=== PATIENT | female | born 1985 | race Caucasian/White ===

== ENCOUNTER 2022-11-04 05:07 | Inpatient (IN) | payer OTHER ==
[2022-11-04] VITALS (16 sets, daily range): BP systolic 76–145; BP diastolic 47–89
[~2022-11-04] VITALS: Ht 167.6 cm; Wt 129.6 kg
[~2022-11-04 05:07] MED LIST: ABAC300; ACYC400; CEPH500 PO; CLIN150 PO; EXPECTA PRENAT1 EACH; HYDACE5 PO; IBUP600 PO; IBUP800 PO; NITR100CA PO; OXYACE5T PO; PRENATAL TABLE1 EAC2 PO; TRAM50 PO; TYLENOL/ADVIL PRN
[2022-11-04 06:25] LABS: BASOPHILS ABSOLUTE AUTO 0.03 K/mm3 (0.00-0.23); BASOPHILS PERCENT AUTO 0 % (0-2); EOSINOPHILS ABSOLUTE AUTO 0.11 K/mm3 (0.00-0.68); EOSINOPHILS PERCENT AUTO 1 % (0-6); Hematocrit 37.1 % (33.0-51.0); Hemoglobin 12.4 g/dL (11.5-16.0); IMMATURE GRAN ABSOLUTE AUTO 0.04 K/mm3 (0.00-0.10); IMMATURE GRAN PERCENT AUTO 0 % (0-1); LYMPHOCYTES PERCENT AUTO 20 % (21-46); MONOCYTES ABSOLUTE AUTO 0.61 K/mm3 (0.16-1.47); MONOCYTES PERCENT AUTO 6 % (4-13); Mean Corpuscular HGB 27.5 pg (26.0-34.0); Mean Corpuscular HGB Conc 33.4 g/dL (31.5-36.5); Mean Corpuscular Volume 82 fL (80-100); Mean Platelet Volume 11.1 fL (9.1-12.4); NEUTROPHILS ABSOLUTE AUTO 6.81 K/mm3 (1.96-9.15); NEUTROPHILS PERCENT AUTO 72 % (41-73); Platelet Count 219 K/mm3 (150-400); RDW Coefficient Variation 12.5 % (11.7-14.2); Red Blood Cell Count 4.51 M/mm3 (3.80-5.20)
[2022-11-04 08:17] LABS: PCO2 Cord - Arterial 65.1 mmHg (40-50); PO2 Cord - Arterial 18.4 mmHg (16-20); pH Cord - Arterial 7.24 (7.28-7.35)
[2022-11-04 08:19] LABS: PCO2 Cord - Venous 51.7 mmHg (40-50); PO2 Cord - Venous 24.7 mmHg (28-32); pH Umbilical Cord - Venous 7.32 (7.26-7.35)
--- NOTE | 2022-11-04 09:02 | NUR ---
PT STATES SHE CANNOT FEEL LEGS OR FEET, ATTEMPT TO WIGGLES TOES, NOT ABLE TO. PT DENIES PAIN. HOLDING BABY. SECOND FUNDAL CHECK SHOWS SMALL AMOUNT LOCIA AND FUNDUS AT UMBILICUS LEVEL. PRESSURE DRESSING APPLIED CURRENT DRESSING PEALING BACK. VSS. PT REPORTS WARM, TEMP 97.0.
--- NOTE | 2022-11-04 15:09 | NUR ---
BONY CARE DONE, REPT TO Kimmie YO RN
--- NOTE | 2022-11-04 15:10 | NUR ---
MONIQUE DONE, REPT TO Kimmie VALDOVINOS RN
--- NOTE | 2022-11-04 15:58 | NUR ---
REPORTS PAIN 5/10. PT OFFERED ADDITIONAL PAIN RX BUT PT DECLINES AT THIS TIME. REPORTS SHE WOULD LIKE TO WAIT UNTIL DINNER TIME TO TAKE THAT. PT ENCOURAGED TO CALL IF SHE CHANGES HER MIND
[2022-11-05 05:26] VITALS: BP 113/56
--- NOTE | 2022-11-05 05:35 | NUR ---
LATE ENTRY- DR. DING WAS CALLED BY [facility]U, REGARDING PT'S IRREGULAR HR AND RHYTHM. SHE ORDERS A IV FLUID BOLUS AND BLOOD WORK, BUT DECLINES REQUEST FOR A 12-LEAD.
--- NOTE | 2022-11-05 05:58 | NUR ---
At 0526 vital signs were done. Patient's pulse rate was 38 BPM. Pulse oximeter was placed which showed irregular pulse rate ranging from high 30s to low 100s. Irregular heart rate heard through auscultation. Call tp Dr. Ibarra at 0540. Orders for labs and IV fluid bolus received. Patient denies any symptoms.
[2022-11-05 06:02] LABS: BASOPHILS ABSOLUTE AUTO 0.02 K/mm3 (0.00-0.23); BASOPHILS PERCENT AUTO 0 % (0-2); EOSINOPHILS ABSOLUTE AUTO 0.02 K/mm3 (0.00-0.68); EOSINOPHILS PERCENT AUTO 0 % (0-6); Hematocrit 29.8 % (33.0-51.0); Hemoglobin 9.9 g/dL (11.5-16.0); IMMATURE GRAN ABSOLUTE AUTO 0.06 K/mm3 (0.00-0.10); IMMATURE GRAN PERCENT AUTO 1 % (0-1); LYMPHOCYTES ABSOLUTE AUTO 1.96 K/mm3 (0.84-5.20); LYMPHOCYTES PERCENT AUTO 16 % (21-46); MONOCYTES ABSOLUTE AUTO 0.89 K/mm3 (0.16-1.47); MONOCYTES PERCENT AUTO 7 % (4-13); Mean Corpuscular HGB 27.3 pg (26.0-34.0); Mean Corpuscular HGB Conc 33.2 g/dL (31.5-36.5); Mean Corpuscular Volume 82 fL (80-100); Mean Platelet Volume 11.6 fL (9.1-12.4); NEUTROPHILS ABSOLUTE AUTO 9.18 K/mm3 (1.96-9.15); NEUTROPHILS PERCENT AUTO 76 % (41-73); Platelet Count 190 K/mm3 (150-400); RDW Coefficient Variation 12.4 % (11.7-14.2); RDW Standard Deviation 36.9 fL (35.1-46.3); Red Blood Cell Count 3.63 M/mm3 (3.80-5.20); White Blood Cell Count 12.13 K/mm3 (4.00-11.30)
[2022-11-05 06:37] LABS: Albumin, Blood 2.1 g/dL (3.4-5.0); Albumin/Globulin Ratio 0.6 (0.8-1.8); Bilirubin, Total 0.2 mg/dL (0.1-1.0); Bun/Creatinine Ratio 17.5 (12.0-20.0); Calcium, Blood 8.5 mg/dL (8.5-10.1); Creatinine, Blood 0.69 mg/dL (0.40-1.00); Globulin, Blood 3.3 g/dL (2.2-4.0); Potassium, Blood 4.1 mmol/L (3.5-5.5); Total Protein, Blood 5.4 g/dL (6.4-8.2)
--- NOTE | 2022-11-05 07:40 | NUR ---
asked to make a consult to dr enriquez by pt rn, explained pt cardiac rhythm, new orders for tele, stat ekg, echo, and labs, to leave pt on bedrest until doctor comes to assess. dr enriquez requested OB doctor phone number, number given.
[2022-11-05 07:45] VITALS: BP 118/74
--- NOTE | 2022-11-05 07:48 | NUR ---
REPORT TAKEN FROM ANH CHE, ANH STATED IN REPORT THAT PT WAS EXPERIENCING BRADYCARDIA/TACHYCARDIA THIS AM PROVIDER UPDATED AND ORDER PLACED FOR LABS AND FLUID BOLUS. BOLUS COMPLETE PROVIDER UPDATED OF BRADYCARDIA/TACHYARDIA UNRESOLVED ORDERS PLACE FOR EKJG AND PROVIDER CONSULT. PT IS A&O X4 AND PT STATES UNAWARE OF RYTHM CHANGE AT THIS TIME.
--- NOTE | 2022-11-05 08:00 | NUR ---
DR. DING CALLED WRONG ORDER PLACED FOR CARDIAC CONSULT PROVIDER, PROVIDER ONLY WANTED ORDER FOR HOSPITALIST CONSULT AND EKG. WILL REFER PT FOR OP CARDIAC CONSULT ONCE D/C
[2022-11-05 08:19] LABS: Magnesium, Blood 1.7 mg/dL (1.6-2.4)
[2022-11-05 08:21] LABS: Thyroid Stimulating Hormone 2.83 uIU/mL (0.360-4.800)
[2022-11-05 12:07] VITALS: BP 113/59
[2022-11-05 12:40] VITALS: BP 140/81
--- NOTE | 2022-11-05 12:44 | NUR ---
pt non symptomatic, up to bathroom pcu called pt is between afib-aflutter, back to bed after bathroon, VS taken
[2022-11-05 15:36] VITALS: BP 144/89
[2022-11-05 19:33] VITALS: BP 135/75
[2022-11-06] VITALS (8 sets, daily range): BP systolic 120–144; BP diastolic 64–103
[2022-11-06 05:48] LABS: BASOPHILS ABSOLUTE AUTO 0.04 K/mm3 (0.00-0.23); BASOPHILS PERCENT AUTO 0 % (0-2); EOSINOPHILS ABSOLUTE AUTO 0.12 K/mm3 (0.00-0.68); EOSINOPHILS PERCENT AUTO 1 % (0-6); Hematocrit 30.3 % (33.0-51.0); IMMATURE GRAN ABSOLUTE AUTO 0.06 K/mm3 (0.00-0.10); IMMATURE GRAN PERCENT AUTO 1 % (0-1); LYMPHOCYTES ABSOLUTE AUTO 2.05 K/mm3 (0.84-5.20); LYMPHOCYTES PERCENT AUTO 19 % (21-46); MONOCYTES ABSOLUTE AUTO 0.66 K/mm3 (0.16-1.47); MONOCYTES PERCENT AUTO 6 % (4-13); Mean Corpuscular HGB 27.5 pg (26.0-34.0); Mean Corpuscular Volume 83 fL (80-100); NEUTROPHILS ABSOLUTE AUTO 7.83 K/mm3 (1.96-9.15); NEUTROPHILS PERCENT AUTO 73 % (41-73); Platelet Count 197 K/mm3 (150-400); RDW Coefficient Variation 12.7 % (11.7-14.2); RDW Standard Deviation 38.5 fL (35.1-46.3); Red Blood Cell Count 3.64 M/mm3 (3.80-5.20); White Blood Cell Count 10.76 K/mm3 (4.00-11.30)
[2022-11-06 06:14] LABS: Bun/Creatinine Ratio 16.1 (12.0-20.0); Calcium, Blood 8.1 mg/dL (8.5-10.1); Creatinine, Blood 0.69 mg/dL (0.40-1.00); Magnesium, Blood 1.8 mg/dL (1.6-2.4); Potassium, Blood 3.8 mmol/L (3.5-5.5)
--- NOTE | 2022-11-06 10:05 | NUR ---
PATIENT UP TO THE BATHROOM. MANAGER ASSEMBLY CALLED RN STATES PATIENT RATE WENT UP TO 150 FOR ONE MINUTE. PATIETN SITTING UP IN CHAIR. ASYMPTOMATIC.
--- NOTE | 2022-11-06 11:46 | NUR ---
RN PLACED CALL TO DR. CHILD (OPTICAL LENS MANUFACTURING TECH) TO GIVE HER AN UPDATE REGARDING PATIENT STATUS. RN UPDATED PROVIDER THAT PER TELE MONITOR PATIENT HAS BEEN RUNNING 120'S WHILE SITTING IN BED, UP TO 160'S WHILE UP TO THE BATHROOM. BLOOD PRESSURE 141/103. PATIENT ASYMPTOMATIC. NEW ORDERS FOR ADDITIONAL METOPROLOL RECIEVED. ORDER TO GIVE 12.5 MG NOW TO MAKE A TOTAL OF 50 MG DAILY.
--- NOTE | 2022-11-06 12:19 | NUR ---
RN PLACED CALL TO DR. DING AT 1215. VOICEBOX FULL. TEXT SENT TO CALL [facility].
--- NOTE | 2022-11-06 12:21 | NUR ---
RECIEVED TEXT FROM DR. DING STATING SHE IS IN A METTING UNTIL 1300 AND THEN WILL BE OVER TO SEE THE PATIENT.
--- NOTE | 2022-11-06 12:59 | NUR ---
reviewed charting and care with alberto lassiter.
--- NOTE | 2022-11-06 12:59 | NUR ---
per telecom assistant patient has converted to sinus rhythm with a rate of 78. was previously 160 hr with patient getting up to bathroom. pt remains asymptomatic and is sitting up feeding her baby now. awaiting dr holder to see patient this afternoon to review care as project management professor states she is cleared from a cardiology perspective.
--- NOTE | 2022-11-06 13:27 | NUR ---
dr holder in to see pt, ok to dc home with cardiology referal within 1 month as reccomended by dr bonner buggy loader. dr holder writing for scripts for 50 mg metoprolol daily as well as 20 mg xarelto daily. [facility] wants to follow up with patient within 2 weeks or sooner if patient feels syptomatic or having any issues.
[2022-11-06] MEDS ORDERED: XARELTO20 MG PO (13:30)
[2022-11-06] MEDS ORDERED: Toprol Xl50 MG PO (13:30)
[2022-11-06] MEDS ORDERED: Percocet 5-3251 EACH PO (13:31)
[2022-11-06] MEDS ORDERED: DOCU100 PO (13:31)
[2022-11-06] MEDS ORDERED: IBUP800 PO (14:05)
--- NOTE | 2022-11-06 14:17 | NUR ---
RN REVIEWED DISCHRAGE EDUCATION WITH PATIENT. REVIEWED PATIENT MEDICATIONS. ADVISED PATIENT WILL CONTINUE ON METOPROLOL XL 50 MG DAILY IN ADDITION TO 20 MG XARELTO DAILY. PATIENT VERBALIZED UNDERSTANDING, DENIES ANY QUESTIONS OR CONCERNS. WILL FOLLOW UP WITH DR. DING WITHIN 2 WEEKS FOR POST OP APPOINTMENT, WELL WITH CARDIOLOGY WITIN A MONTH RECOMMENDED BY DR. STATON. PATIENT VERBALIZES THAT SHE IS TO FOLLOW UP WITH DR. DING IF SYMPTOMATIC OR HAS ANY CONCERNS PRIOR. RN ADVISED PATIETNT IF SHE WAS HAVING URGENT CONCERNS SUCH CHEST PAIN, DIFFICULTY BREATHING, SEVERE HEADACHE, VISION CHANGES TO GO TO ER IMMEDIATELY. PATIENT VERBALIZES IMPORTANCE OF NOT MISSING ANY OF HER BLOOD THINNER MEDICATION OR METOPROLOL.
== END 2022-11-06 15:55 | disposition home or self-care (01) | DRG 787 ==
LOC: BC 05:07
PROVIDERS: Internal Medicine Cardiovascular Disease; ADMIT Obstetrics & Gynecology
PROC: 4A033R1 Measurement of Arterial Saturation, Peripheral, Percutaneous Approach (ICD-10-PCS; 2022-11-04)
PROC: 10D00Z1 Extraction of Products of Conception, Low, Open Approach (ICD-10-PCS; principal; 2022-11-04 07:30)
DX: O34.211 Maternal care for low transverse scar from previous cesarean delivery (principal); O99.43 Diseases of the circulatory system complicating the puerperium; O11.4 Pre-existing hypertension with pre-eclampsia, complicating childbirth; Z37.0 Single live birth; O99.284 Endocrine, nutritional and metabolic diseases complicating childbirth; O99.344 Other mental disorders complicating childbirth; I48.0 Paroxysmal atrial fibrillation; O99.214 Obesity complicating childbirth; E66.01 Morbid (severe) obesity due to excess calories; E83.42 Hypomagnesemia; F41.9 Anxiety disorder, unspecified; Z67.40 Type O blood, Rh positive; I87.2 Venous insufficiency (chronic) (peripheral); Z87.891 Personal history of nicotine dependence; Z88.0 Allergy status to penicillin; Z88.8 Allergy status to other drugs, medicaments and biological substances; Z79.899 Other long term (current) drug therapy
CPT/HCPCS: 36415; 80048; 80053; 82803; 83735; 84443; 85025; 86850; 86900; 86901; 86923; 93005; 93010; 93306; 93970; A9270; J0694; J1100; J1885; J2001; J2371; J2405; J2704; J2765; J3010; J3475; J7120

== ENCOUNTER → 2024-03-05 | Outpatient (CLI) | payer OTHER ==
[~2024-03-05] MED LIST changes: +DOCU100 PO; +Percocet 5-3251 EACH PO; +Toprol Xl50 MG PO; +XARELTO20 MG PO
[2024-03-08 14:13] LABS: APTIMA MEDIA TYPE Urine; C. TRACHOMATIS BY TMA Negative (Negative); N. GONORRHOEAE BY TMA Negative (Negative); SPECIMEN SOURCE Urine
== END | disposition home or self-care (01) ==
LOC: LAB 12:20 → LAB SHORT 12:20
PROVIDERS: Obstetrics & Gynecology
DX: O09.521 Supervision of elderly multigravida, first trimester (principal)
CPT/HCPCS: 87491; 87591